=== PATIENT | male | born 1955 | race Caucasian/White ===

== ENCOUNTER 2019-06-05 16:05 | Emergency (ER) | payer BC, MEDICARE ==
[2019-06-05 16:16] VITALS: BP 120/77; PULSE 97
--- NOTE | 2019-06-05 16:42 | EDM.PDOC ---
ED HPI GENERAL MEDICAL PROBLEM - General Chief Complaint: General Stated Complaint: head wound sutures rupture Time Seen by Provider: 06/05/19 16:28 Source of Information: Reports: Patient, Family History Limitations: Reports: No Limitations - History of Present Illness INITIAL COMMENTS - FREE TEXT/NARRATIVE: Patient and report that patient had a small bump on his head for a few weeks and eventually went in to be seen at [facility]. Does not recall any specific injury to the head prior to the bump developing. Once at [facility], he had a drain inserted by for 2 days. The drain was then removed. Sutures were placed in the area and "3 bleeders had to be cut out". This was 7 days ago. Overall the hematoma seems to be worsening. It is larger in size. Sutures came out and now there has been some oozing of blood. No pain reported. No fevers. No purulent discharge from wound area. Treatments APPLICATION TECHNICIAN: Reports: Acetaminophen Head Pain Score (Numeric/FACES): 3 - Related Data Allergies Allergy/AdvReac Type Severity Reaction Status Date / Time No Known Drug Allergies Allergy Cannot Verified 06/05/19 16:19 Remember Home Meds: Home Meds levETIRAcetam [Levetiracetam] 500 mg PO BID 08/25/16 [History] Past Medical History Neurological History: Reports: Seizure (Epilepsy) Social & Family History - Caffeine Use Caffeine Use: Reports: Coffee ED ROS GENERAL - Review of Systems Review Of Systems: See Below Constitutional: Reports: No Symptoms HEENT: Reports: No Symptoms, Glasses Respiratory: Reports: No Symptoms Cardiovascular: Reports: No Symptoms GI/Abdominal: Reports: No Symptoms : Reports: No Symptoms Musculoskeletal: Reports: No Symptoms Skin: Reports: Lumps. Denies: Bruising, Pruritis, Erythema Neurological: Reports: No Symptoms Psychiatric: Reports: No Symptoms ED EXAM, GENERAL - Physical Exam Exam: See Below Exam Limited By: No Limitations General Appearance: Alert, WD/WN, No Apparent Distress Eye Exam: Bilateral Eye: EOMI, PERRL Throat/Mouth: Normal Voice, No Airway Compromise Head: Other (Left parietal scalp has areas of bogginess/lumps with one area of serosanguinous drainage. Non-purulent. No scaling/excoriation. Normal skin temp. [address] ) Respiratory/Chest: No Respiratory Distress Peripheral Pulses: 2+: Radial (R) GI/Abdominal: Soft Extremities: Normal Capillary Refill Neurological: Alert, Oriented, Normal Cognition, Normal Gait Psychiatric: Normal Affect, Normal Mood Skin Exam: Warm, Dry Course - Vital Signs Last Recorded V/S: Last Vital Signs Temp 36.6 C 06/05/19 16:06 Pulse 97 06/05/19 16:06 Resp 16 06/05/19 16:06 BP 120/77 06/05/19 16:06 Pulse Ox 100 06/05/19 16:06 - Orders/Labs/Meds Orders: Active Orders 24 hr Category Date Time Status CULTURE WOUND [RM] Stat Lab 06/05/19 16:41 Ordered Labs: Laboratory Tests 06/05/19 06/05/19 06/05/19 Range/Units 15:45 16:40 16:50 WBC 6.0 (4.0-10.2) K/uL RBC 4.64 (4.33-5.41) M/uL Hgb 14.9 (13.1-16.8) g/dL Hct 42.3 (39.0-49.0) % MCV 91.2 (84.0-98.0) fL MCH 32.1 (28.2-33.3) pg MCHC 35.2 (31.7-36.0) g/dL RDW 13.5 (11.2-14.1) % Plt Count 188 (150-350) K/uL Neut % (Auto) 59.6 (45.0-80.0) % Lymph % (Auto) 28.8 (10.0-50.0) % [place] % (Auto) 8.9 (2.0-14.0) % Eos % (Auto) 2.0 (0.0-5.0) % Baso % (Auto) 0.7 (0.0-2.0) % Neut # (Auto) 3.56 (1.40-7.00) K/uL Lymph # (Auto) 1.72 (0.50-3.50) K/uL [place] # (Auto) 0.53 (0.00-1.00) K/uL Eos # (Auto) 0.12 (0.00-0.50) K/uL Baso # (Auto) 0.04 (0.00-0.20) K/uL PT 10.7 (9.5-12.0) SEC INR 1.0 Sodium 140 (136-145) mmol/L Potassium 3.9 (3.5-5.1) mmol/L Chloride 105 (98-107) mmol/L Carbon Dioxide 23.8 (21.0-32.0) mmol/L BUN 11 (7-18) mg/dL Creatinine 0.98 (0.51-1.17) mg/dL Est Cr Clr Drug Dosing 78.49 mL/min Estimated GFR (MDRD) > 60 mL/min Glucose 104 (74-106) mg/dL Calcium 9.0 (8.5-10.1) mg/dL Total Bilirubin 0.5 (0.2-1.0) mg/dL AST 16 (15-37) U/L ALT 18 (12-78) U/L Alkaline Phosphatase 87 (46-116) IU/L Total Protein 7.5 (6.4-8.2) g/dL Albumin 3.7 (3.4-5.0) g/dL Meds: Medications Discontinued Medications Generic Name Dose Route Start Last Admin Trade Name Freq PRN Reason Stop Dose Admin Neomycin/Polymyxin/Bacitracin 1 each 06/05/19 17:20 06/05/19 17:24 Triple Antibiotic Oint TOP 06/05/19 17:21 1 each ONETIME ONE Administration - Re-Assessments/Exams Free Text/Narrative Re-Assessment/Exam: 06/05/19 17:00 CBC/Chem/PT/INR performed. Called on-call surgeon at [facility], , and reviewed patient. suspects that this is a seroma. Recommended conservative treatment over the weekend and to be seen by Surgery next week when they return to [facility]. No drainage or further manipulation of the involved area at this time. Recommendations were discussed with patient and and they are agreeable with plan. Departure - Departure Time of Disposition: 17:24 Disposition: Home, Self-Care 01 Condition: Good Clinical Impression: Seroma after procedure - Discharge Information *PRESCRIPTION DRUG MONITORING PROGRAM REVIEWED*: Not Applicable *COPY OF PRESCRIPTION DRUG MONITORING REPORT IN PATIENT MARGARITA: Not Applicable Instructions: Seroma Referrals: Tello Barney, BUSINESS PRACTICES OFFICER [Primary Care Provider] - Forms: ED Department Discharge Additional Instructions: OK to shower but let water flow gently on head/no scrubbing. Can put topical antibiotic over sutured area. Keep dressing over involved area to absorb any leaking fluid. Follow up next week with surgeon here at [facility] (should be ) to get examined. Further planning as needed at that time. Follow up otherwise as needed if there are additional problems. - My Orders Last 24 Hours: My Active Orders 06/05/19 16:41 CULTURE WOUND [RM] Stat - Assessment/Plan Last 24 Hours: My Active Orders 06/05/19 16:41 CULTURE WOUND [RM] Stat
[2019-06-05 17:18] LABS: CHLORIDE,CL 105 mmol/L (98-107); SODIUM,NA 140 mmol/L (136-145)
[2019-06-05] MEDS ORDERED: Bacitracin/Neomycin/Polymyxin B Oint 0.9 GM U/D Packet TOP ONE (17:20)
== END 2019-06-05 17:45 | disposition home or self-care (01) ==
LOC: LL.ED 16:05
DX: L76.33 Postprocedural seroma of skin and subcutaneous tissue following a dermatologic procedure (principal); Z79.899 Other long term (current) drug therapy; Z98.890 Other specified postprocedural states
CPT/HCPCS: 36415; 80053; 85025; 85610; 87070; 87205; 99283; 99284

== ENCOUNTER 2019-07-06 14:52 | Emergency (ER) | payer MEDICARE ==
[2019-07-06 15:02] VITALS: BP 121/82; PULSE 90
[2019-07-06] MEDS ORDERED: EPINEPHrine 1 MG/1 ML Amp SUBCUT ONE (16:06)
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
--- NOTE | 2019-07-06 16:22 | EDM.PDOC ---
ED HPI GENERAL MEDICAL PROBLEM - General Chief Complaint: Skin Complaint Stated Complaint: bleeding head mass Time Seen by Provider: 07/06/19 15:00 Source of Information: Reports: Patient History Limitations: Reports: No Limitations - History of Present Illness INITIAL COMMENTS - FREE TEXT/NARRATIVE: Patient is a 64-year-old gentleman who came to be evaluated for a hematoma on the temporal area of his scalp left side patient states that this is been going on for about 20 Months he first noticed a small 1) his primary the I indeed controlled the bleeding and drained it disc on a help for about a week or 2. Since that time it has grown and has become tender probably secondary to hematoma Onset: Gradual Duration: Week(s):, Chronic Location: Reports: Head Quality: Reports: Ache, Throbbing Severity: Mild Improves with: Reports: None Worsens with: Reports: None Associated Symptoms: Reports: No Other Symptoms Head Pain Score (Numeric/FACES): 4 - Related Data Allergies Allergy/AdvReac Type Severity Reaction Status Date / Time No Known Drug Allergies Allergy Cannot Verified 07/06/19 15:02 Remember Home Meds: Home Meds levETIRAcetam [Levetiracetam] 500 mg PO BID 08/25/16 [History] Past Medical History Neurological History: Reports: Seizure Social & Family History - Tobacco Use Smoking Status *Q: Current Every Day Smoker Years of Tobacco use: 46 Packs/Tins Daily: 1 - Caffeine Use Caffeine Use: Reports: Coffee ED ROS GENERAL - Review of Systems Review Of Systems: See Below Constitutional: Reports: No Symptoms HEENT: Reports: No Symptoms Respiratory: Reports: No Symptoms Cardiovascular: Reports: No Symptoms Endocrine: Reports: No Symptoms GI/Abdominal: Reports: No Symptoms : Reports: No Symptoms Musculoskeletal: Reports: No Symptoms Skin: Reports: No Symptoms Neurological: Reports: No Symptoms Psychiatric: Reports: No Symptoms Hematologic/Lymphatic: Reports: No Symptoms Immunologic: Reports: No Symptoms ED EXAM, GENERAL - Physical Exam Exam: See Below Exam Limited By: No Limitations General Appearance: Alert, WD/WN, No Apparent Distress Ears: Normal External Exam, Normal Canal, Hearing Grossly Normal, Normal TMs Ear Exam: Bilateral Ear: Auricle Normal, Canal Normal, TM normal Nose: Normal Inspection Throat/Mouth: Normal Inspection, Normal Lips, Normal Teeth, Normal Gums, Normal Oropharynx, Normal Voice, No Airway Compromise Head: Other (Hematoma left side of the scalp temporal area about 25 mL patient states about 2 months ago he might ahead the covers with his head since then he' s been having problems) Neck: Normal Inspection, Supple, Non-Tender, Full Range of Motion Respiratory/Chest: No Respiratory Distress, Lungs Clear, Normal Breath Sounds, No Accessory Muscle Use, Chest Non-Tender Cardiovascular: Normal Peripheral Pulses, Regular Rate, Rhythm, No Edema, No Gallop, No JVD, No Murmur, No Rub GI/Abdominal: Normal Bowel Sounds, Soft, Non-Tender, No Organomegaly, No Distention, No Abnormal Bruit, No Mass Back Exam: Normal Inspection, Decreased Range of Motion Extremities: Normal Inspection, Normal Range of Motion, Non-Tender, Normal Capillary Refill, No Pedal Edema Neurological: Alert, Oriented, CN II-XII Intact, Normal Cognition, Normal Gait, Normal Reflexes, No Motor/Sensory Deficits, Other (History of seizure disorder) Psychiatric: Normal Affect, Normal Mood Skin Exam: Other (Subcutaneous hematoma scalp area) Course - Vital Signs Last Recorded V/S: Last Vital Signs Temp 97.2 F 07/06/19 14:54 Pulse 90 07/06/19 14:54 Resp 20 07/06/19 14:54 BP 121/82 07/06/19 14:54 Pulse Ox 98 07/06/19 14:54 - Orders/Labs/Meds Orders: Active Orders 24 hr Category Date Time Status Head wo Cont [CT] Stat Exams 07/06/19 17:27 Taken Labs: Laboratory Tests 07/06/19 07/06/19 07/06/19 Range/Units 16:34 16:34 16:34 WBC 5.9 (4.0-10.2) K/uL RBC 4.38 (4.33-5.41) M/uL Hgb 14.3 (13.1-16.8) g/dL Hct 40.6 (39.0-49.0) % MCV 92.7 (84.0-98.0) fL MCH 32.6 (28.2-33.3) pg MCHC 35.2 (31.7-36.0) g/dL RDW 14.2 H (11.2-14.1) % Plt Count 199 (150-350) K/uL Neut % (Auto) 57.1 (45.0-80.0) % Lymph % (Auto) 32.4 (10.0-50.0) % [place] % (Auto) 8.8 (2.0-14.0) % Eos % (Auto) 1.0 (0.0-5.0) % Baso % (Auto) 0.7 (0.0-2.0) % Neut # (Auto) 3.39 (1.40-7.00) K/uL Lymph # (Auto) 1.92 (0.50-3.50) K/uL [place] # (Auto) 0.52 (0.00-1.00) K/uL Eos # (Auto) 0.06 (0.00-0.50) K/uL Baso # (Auto) 0.04 (0.00-0.20) K/uL PT 10.4 (9.5-12.0) SEC INR 1.0 APTT 29.4 (21.0-31.3) SEC Sodium 137 (136-145) mmol/L Potassium 4.6 (3.5-5.1) mmol/L Chloride 104 (98-107) mmol/L Carbon Dioxide 27.2 (21.0-32.0) mmol/L BUN 10 (7-18) mg/dL Creatinine 0.96 (0.51-1.17) mg/dL Est Cr Clr Drug Dosing 79.16 mL/min Estimated GFR (MDRD) > 60 mL/min Glucose 79 (74-106) mg/dL Calcium 8.9 (8.5-10.1) mg/dL Total Bilirubin 0.4 (0.2-1.0) mg/dL AST 23 (15-37) U/L ALT 28 (12-78) U/L Alkaline Phosphatase 75 (46-116) IU/L Total Protein 7.5 (6.4-8.2) g/dL Albumin 3.7 (3.4-5.0) g/dL Departure - Departure Time of Disposition: 18:35 Disposition: Home, Self-Care 01 Condition: Fair Clinical Impression: Subgaleal fluid collection - Discharge Information *PRESCRIPTION DRUG MONITORING PROGRAM REVIEWED*: No *COPY OF PRESCRIPTION DRUG MONITORING REPORT IN PATIENT MARGARITA: No Referrals: PCP,Unknown [Ordering Only Provider] - Forms: ED Department Discharge Care Plan Goals: New dressing was applied after cleaning of the old blood CAT scan revealed subgaleal fluid collection at this time we will refer him to Dr. Brandon at [facility] on for further evaluation will go ahead and discharge him home. - My Orders Last 24 Hours: My Active Orders 07/06/19 17:27 Head wo Cont [CT] Stat - Assessment/Plan Last 24 Hours: My Active Orders 07/06/19 17:27 Head wo Cont [CT] Stat
[2019-07-06 17:02] LABS: CHLORIDE,CL 104 mmol/L (98-107); SODIUM,NA 137 mmol/L (136-145)
== END 2019-07-06 19:10 | disposition home or self-care (01) ==
LOC: LL.ED 14:52
DX: M79.81 Nontraumatic hematoma of soft tissue (principal); F17.210 Nicotine dependence, cigarettes, uncomplicated; Z79.899 Other long term (current) drug therapy
CPT/HCPCS: 36415; 70450; 80053; 85025; 85610; 85730; 99283; 99284-25